=== PATIENT | female | born 1965 | race Caucasian/White ===

== ENCOUNTER → 2017-07-06 | Day surgery (SDC) | payer OTHER ==
[~2017-07-06] VITALS: Ht 160 cm; Wt 78.5 kg
[~2017-07-06] MED LIST: B12/1TAB3 PO; CYAN1TAB68 PO; IBUP200C71 PO; IBUP800T37 PO; LIDOCAINE MPF 1% 5 ML VIAL ONE; LIDOCAINE/SOD BICARB 8.4% SYR ID ONE; NORMOSOL R SOLN(*) 1000 ML BAG 1,000 ML IV PRN; OXYC-865 PO; PROPOFOL EMUL(*) 10MG/ML 20 ML 40 ML ONE
[2017-07-06 07:20] VITALS: BP 129/70
--- NOTE | 2017-07-06 07:23 | Post Operative Progress Note ---
Post Operative Progress Note Date: July 06, 2017 Time: 08:52 Surgeon: ashley Anesthesia: dr william Pre-Op Diagnosis: screening colonoscopy Post-Op Diagnosis: sigmoid divertiulcosis and 2 mm polyp at 15 cm and transverse colon Procedure(s): colonoscopy and polypectomy FRANKLIN LIANG MD July 06, 2017 07:23
--- NOTE | 2017-07-06 07:24 | Short(Outpt) Discharge Summary ---
Discharge Summary Reason for Hosp/Final Diag: (1) Encounter for screening colonoscopy Hospital Course & Plan: sigmoid diverticulosis and 2 mm polyps at 15 cm and transverse colon Departure Discharge to: Home Discharge Instructions Home Meds Reported Medications B12/Levomefolate Calcium/B-6 (FOLBIC RF TABLET) 1 Each Tablet, 1 EACH PO 05/25/17 Diet: High Fiber Activity: As Tolerated FRANKLIN LIANG MD July 06, 2017 07:24
[2017-07-06 08:53] VITALS: BP 128/73
[2017-07-06 09:00] VITALS: BP 109/81
[2017-07-06 09:15] VITALS: BP 131/63
[2017-07-06 09:16] VITALS: BP 120/75
--- NOTE | 2017-07-06 14:38 | OPERATIVE REPORT 1 ---
EVENT DATE: July 06, 2017 SURGEON: Bruce Syed MD ANESTHESIOLOGIST: Haider Vyas MD ANESTHESIA: Sedation. PREOPERATIVE DIAGNOSIS Screening colonoscopy. POSTOPERATIVE DIAGNOSES 1. Sigmoid diverticulosis. 2. A 2 mm polyp in the transverse colon. 3. A 2 mm polyp at 15 cm. PROCEDURE PERFORMED Colonoscopy with polypectomy. DESCRIPTION OF PROCEDURE Patient was placed in the left lateral decubitus position and given intravenous sedation. Rectal exam was unremarkable. Flexible colonoscope was inserted and advanced to the cecum. She had an excellent bowel prep. The ileocecal valve and base of the cecum were identified. Scope was slowly withdrawn. Care was taken to look behind the haustral folds. No abnormalities were noted in the cecum or right colon. In the transverse colon, she had a small 2 mm projection. This was removed with a cold cup. The rest of the transverse and descending colon were normal. She had multiple diverticula in the sigmoid colon. No evidence of diverticulitis. At 15 cm, she had a small, 2 mm projection. This was removed with the cold cup. The scope was retroflexed. That appeared to be normal. Patient tolerated the procedure well. No apparent complications. [facility]
== END ==
LOC: OR 00:52
PROVIDERS: ATTEND Surgery
DX: Z12.11 Encounter for screening for malignant neoplasm of colon (principal); K63.5 Polyp of colon; K57.30 Diverticulosis of large intestine without perforation or abscess without bleeding
CPT/HCPCS: 00811; 45380; 88305; J2001; J2704

== ENCOUNTER 2017-08-07 15:18 | Outpatient (RCR) | payer OTHER ==
[2017-05-25 10:03] VITALS: BP 141/82
[2017-05-25 11:06] LABS: PLATELET COUNT, AUTOMATED 188 K/uL (150-450)
--- NOTE | 2017-05-26 04:26 | ONCOLOGY FOLLOW UP NOTE ---
EVENT DATE: May 25, 2017 REFERRING PROVIDER Matthew Ruelas MD REASON FOR CONSULTATION Iron deficiency anemia. CHIEF COMPLAINT Fatigue, restless legs, sleep disturbance, ice chewing, mood disturbance. HISTORY OF PRESENT ILLNESS Ms. Whitley presents to my clinic today at the request of Dr. Ruelas for evaluation of iron deficiency. She reports that she underwent gastric bypass surgery about ten years ago. Since that time, she has been doing pretty well in general. She does receive vitamin B12 injections, and she has tried to take oral iron supplementation in the past, but it makes her feel quite ill. She reports no melena or hematochezia. She has had no abnormal vaginal bleeding. She denies hematuria. She has had no severe epistaxis. She does report ongoing fatigue, which has been the case for quite some time. She feels occasionally slightly lightheaded, but she has not felt that she will lose consciousness. She reports issues with restless legs, and her sleep has been disturbed by this. She does report that she tends to be "edgy" at times, and this has been the case for quite a while. She tends to feel fairly cold in a warm room, and she will need to wear a sweatshirt when she works out at the gym, for example. She feels compelled to chew ice. REVIEW OF SYSTEMS Otherwise negative, and all systems were reviewed. PAST MEDICAL HISTORY 1. Status post gastric bypass surgery about ten years ago. 2. History of iron deficiency. PAST SURGICAL HISTORY Patient is reportedly status post cholecystectomy. CURRENT MEDICATIONS None. ALLERGIES No known drug allergies. SOCIAL HISTORY The patient smokes about a half a pack of cigarettes per day. She drinks one to two alcoholic beverages per day on average. There is no history of illicit drug use. FAMILY HISTORY There is a family history of "liver cancer" in her mother diagnosed when she was age 66. VITAL SIGNS Temperature is 98.6, blood pressure 141/82, heart rate is 82, respirations 16, oxygen saturation is 98% on room air. Weight is 81.5 kg. PHYSICAL EXAMINATION GENERAL: Patient is alert and oriented times three in no apparent distress, sitting in the exam room chair. She is interactive and quite pleasant. HEENT: Exam reveals anicteric sclerae. NEUROLOGIC: Exam is grossly nonfocal, and her gait is normal. EXTREMITIES: Exam reveals no edema, clubbing or cyanosis. There is no erythema or tenderness to palpation of the extremities. LABORATORY STUDIES Laboratory studies are reviewed from a wellness check performed on May 16, 2017. Her basic chemistries are unremarkable. Total iron binding capacity 512% . Transferrin saturation is 4. There is no ferritin for review. Hemoglobin is 10.5, hematocrit 36.9, MCV is 69. IMAGING None today. ASSESSMENT AND PLAN Iron deficiency anemia due to lack of nutritional intake. I had a good visit with Ms. Whitley today. We spent time discussing her current symptoms, laboratory studies, and her history of remote gastric bypass surgery performed about 10 years ago. She does not have symptoms to suggest chronic or acute blood loss. I do think we can attribute her laboratory findings to lack of nutritional intake/lack of absorption of iron due to her past gastric bypass surgery. She does not have a severe anemia, but her iron studies are certainly indicative of iron deficiency. She cannot tolerate oral iron. I have recommended that she have repeat labs to be done today, to include a ferritin. We will reevaluate these labs, and based on the results, we will decide how many doses of weekly Venofer she will receive. I would anticipate between two and four. I will review her labs, and we will get orders written for the infusions to begin at [facility] as soon as possible. She will have repeat labs several weeks after her completion of intravenous iron, and I will plan to see her again at that time to reevaluate her symptoms and her numbers. Thank you very much, Dr. Ruelas, for allowing me to take part in the care of this very pleasant patient. Please do not hesitate to call with any questions or concerns. I spent a total of 35 minutes of face to face time with the patient today, 30 minutes of this was spent in direct counseling and coordination of care. SILVIANO
[2017-06-05 14:15] VITALS: BP 135/85
[2017-06-05] MEDS: NS(*) 0.9% 100 ML BAG 100 ML IVPB PRN (15:51)
[2017-06-12 15:16] VITALS: BP 121/70
[2017-06-12] MEDS: NS(*) 0.9% 100 ML BAG 100 ML IVPB PRN (15:37)
[2017-06-19] MEDS: IRON SUCROSE 100 MG/5 ML VIAL IVP PRN (15:21)
[2017-06-19] MEDS: NS(*) 0.9% 100 ML BAG 100 ML IVPB PRN (15:22)
[2017-06-19 15:24] VITALS: BP 119/82
[2017-06-26] MEDS: IRON SUCROSE 100 MG/5 ML VIAL IVP PRN (15:38)
[2017-06-26] MEDS: NS(*) 0.9% 100 ML BAG 100 ML IVPB PRN ×2 (15:38→15:39)
[2017-06-26 16:58] VITALS: BP 114/64
[2017-06-27 15:18] VITALS: BP 123/81
[2017-07-20 06:57] LABS: PLATELET COUNT, AUTOMATED 151 K/uL (150-450)
[2017-07-20 06:59] VITALS: BP 130/66
[2017-07-25 11:02] VITALS: BP 121/68
--- NOTE | 2017-07-26 04:31 | ONCOLOGY FOLLOW UP NOTE ---
EVENT DATE: July 25, 2017 REASON FOR FOLLOWUP Iron deficiency anemia. CHIEF COMPLAINT Patient feels well today. HISTORY OF PRESENT ILLNESS Ms. Whitley returns to clinic for a followup visit today. Since her last visit , she has completed four weekly infusions of Venofer. She tolerated each infusion without any difficulty. Over time, she has started to feel much, much better. She has more energy, her workouts are longer and more strenuous, she is sleeping better, restless legs have improved, and her mood has also improved. She is very happy about this change. She has had followup labs drawn , and she is here to review the results. She reports no blood loss. REVIEW OF SYSTEMS Otherwise negative, and all systems were reviewed. PAST MEDICAL HISTORY 1. Status post gastric bypass surgery about ten years ago. 2. History of iron deficiency. PAST SURGICAL HISTORY Patient is reportedly status post cholecystectomy. CURRENT MEDICATIONS None. ALLERGIES No known drug allergies. SOCIAL HISTORY The patient smokes about a half a pack of cigarettes per day. She drinks one to two alcoholic beverages per day on average. There is no history of illicit drug use. FAMILY HISTORY There is a family history of "liver cancer" in her mother diagnosed when she was age 66. VITAL SIGNS Temperature is 98.9, blood pressure 121/68, heart rate is 80, respirations 16, oxygen saturation is 92%. Weight is 82.4 kg. PHYSICAL EXAMINATION GENERAL: Patient is alert and oriented x three in no apparent distress, sitting in the exam room chair. She is in good spirits, and she appears healthy. HEENT: Exam reveals anicteric sclerae. NEUROLOGIC: Exam is grossly nonfocal, and her gait is normal. EXTREMITIES: Exam reveals no edema, clubbing or cyanosis. SKIN: Exam reveals no concerning rash or lesion. LABORATORY STUDIES Reviewed per the [facility] record. ASSESSMENT AND PLAN Iron deficiency anemia due to lack of nutritional intake. I had a good visit with Ms. Whitley today. We spent time reviewing her symptoms, which are much less than they had been before. She has had general improvement in her overall wellbeing, and she is quite happy about the way that she has been feeling. We spent time reviewing her laboratory studies. She has had significant improvement in her hemoglobin, but she does not appear yet to be quite iron replete. I have recommended that she have two additional weekly infusions of Venofer. She agrees to do so. Hopefully this will extend the period of time between need for additional Venofer infusions. We discussed that this is very likely going to be the case, given her history of gastric bypass surgery. I will plan to see her back after repeat labs in January, or sooner if there are questions or concerns. SILVIANO
[2017-07-31] MEDS: IRON SUCROSE 100 MG/5 ML VIAL IVP PRN (15:24)
[2017-07-31] MEDS: NS(*) 0.9% 100 ML BAG 100 ML IVPB PRN (15:24)
[2017-07-31 15:50] VITALS: BP 129/65
[~2017-08-07] VITALS: Ht 163.2 cm; Wt 82.4 kg
[~2017-08-07 15:18] MED LIST changes: +DEXTROSE 5%(*) 100 ML BAG 100 ML IVPB PRN; +IBUP-136 PO; -IBUP200C71 PO; +IRON SUCROSE 100 MG/5 ML VIAL IVP ONE; -LIDOCAINE MPF 1% 5 ML VIAL ONE; -LIDOCAINE/SOD BICARB 8.4% SYR ID ONE; +LIDOCAINE/SOD BICARB 8.4% SYR ID PRN; -NORMOSOL R SOLN(*) 1000 ML BAG 1,000 ML IV PRN; -PROPOFOL EMUL(*) 10MG/ML 20 ML 40 ML ONE
[2017-08-07 15:27] VITALS: BP 119/83
[2017-08-07] MEDS: IRON SUCROSE 100 MG/5 ML VIAL IVP PRN (15:50)
[2017-08-07] MEDS: NS(*) 0.9% 100 ML BAG 100 ML IVPB PRN ×2 (15:50→15:51)
== END 2017-08-22 ==
LOC: SPU 15:18
PROVIDERS: ATTEND Internal Medicine Medical Oncology
DX: D50.8 Other iron deficiency anemias (principal); Z98.84 Bariatric surgery status; R53.83 Other fatigue; G25.81 Restless legs syndrome; F17.210 Nicotine dependence, cigarettes, uncomplicated; N93.9 Abnormal uterine and vaginal bleeding, unspecified
CPT/HCPCS: 36415; 82728; 83540; 83550; 85025; 96365; 99202; 99212; J1756; J7050; 82040; 82247; 82310; 82374; 82435; 82565; 82947; 84075; 84132; 84155; 84295; 84450; 84460; 84520

== ENCOUNTER → 2018-01-04 | Outpatient (CLI) | payer OTHER ==
[~2018-01-04] MED LIST changes: -DEXTROSE 5%(*) 100 ML BAG 100 ML IVPB PRN; -IRON SUCROSE 100 MG/5 ML VIAL IVP ONE; -LIDOCAINE/SOD BICARB 8.4% SYR ID PRN
--- NOTE | 2018-01-05 08:47 | RADIOLOGY IMAGING REPORT ---
FACILITY: [facility] [place] PATIENT NAME: BETTY REBOLLEDO : [id number] MR: [id number] V: [id number] EXAM DATE: ORDERING PHYSICIAN: JAJA DURAND TECHNOLOGIST: Tangela Galindo PROCEDURE:BILATERAL DIGITAL SCREENING MAMMOGRAM WITH CAD ASSISTED INTERPRETATION & 3D TOMOSYNTHESIS COMPARISON:Prior mammograms 11/08/16, 11/04/15, 01/23/12, 01/20/12. INDICATIONS:SCREENING FINDINGS: Mildly heterogeneous fibroglandular tissue is seen throughout the breasts. The parenchymal pattern has remained stable allowing for difference in mammographic technique & patient positioning. There is no evidence of malignant appearing mass, malignant appearing calcifications or other secondary sign of malignancy in either breast. DIAGNOSTIC CATEGORY 1--NEGATIVE. RECOMMENDATIONS: ROUTINE MAMMOGRAM AND CLINICAL EVALUATION. IMPRESSION: BIRADS 1: Negative. No significant abnormality is seen. Dictated by: Danae Hudson M.D. on 01/04/2018 at 17:48 Transcribed by: CRISTY on 01/05/2018 at 8:09 Approved by: Danae Hudson M.D. on 01/05/2018 at 8:45 [facility]
== END ==
LOC: MAMO 00:40
PROVIDERS: ATTEND Obstetrics & Gynecology
DX: Z12.31 Encounter for screening mammogram for malignant neoplasm of breast (principal)
CPT/HCPCS: 77063; 77067

== ENCOUNTER 2018-01-17 15:53 | Outpatient (RCR) | payer OTHER ==
[2018-01-15 15:25] VITALS: BP 131/86
[2018-01-15 15:48] LABS: PLATELET COUNT, AUTOMATED 199 K/uL (150-450)
[2018-01-17 15:55] VITALS: BP 126/83
--- NOTE | 2018-01-18 02:18 | ONCOLOGY FOLLOW UP NOTE ---
EVENT DATE: January 17, 2018 REASON FOR FOLLOWUP Iron-deficiency anemia, status post remote gastric bypass surgery. CHIEF COMPLAINT Patient feels great today. HISTORY OF PRESENT ILLNESS Ms. Whitley returns to the clinic for a followup visit today. In general, her quality of life has improved dramatically. She reports no significant fatigue. Sleep quality has improved. She has no restless sensations in her legs. Her mood has been better. She is very happy about how things are going. She did have followup labs drawn, and she is here to review the results. REVIEW OF SYSTEMS Otherwise negative on all systems reviewed. PAST MEDICAL HISTORY 1. Status post gastric bypass surgery about ten years ago. 2. History of iron deficiency. PAST SURGICAL HISTORY Patient is reportedly status post cholecystectomy. CURRENT MEDICATIONS Folbic RF tablet once daily. ALLERGIES No known drug allergies. SOCIAL HISTORY The patient smokes about a half a pack of cigarettes per day. She drinks one to two alcoholic beverages per day on average. There is no history of illicit drug use. FAMILY HISTORY There is a family history of "liver cancer" in her mother diagnosed when she was age 66. PHYSICAL EXAMINATION VITAL SIGNS: Temperature is 98.5, blood pressure 126/83, heart rate 68, respirations 16, oxygen saturation 96% on room air. Weight is 82.4 kg. GENERAL: Patient is alert and oriented x3, in no apparent distress, sitting in the exam room chair. She appears healthy. She is interactive and pleasant. HEENT: Anicteric sclerae. NEUROLOGIC: Grossly nonfocal. Her gait is normal. EXTREMITIES: No edema, clubbing, or cyanosis. SKIN: Exam reveals no concerning rash or lesion. Pallor has greatly improved. LABORATORY STUDIES Reviewed per the [facility] record. ASSESSMENT AND PLAN Iron-deficiency anemia due to lack of nutritional intake. Ms. Whitley is doing remarkably well. She has no symptoms to suggest blood loss, and we are attributing her issues with iron deficiency to lack of absorption due to her remote gastric bypass surgery. She has received Venofer supplementation intravenously, and she has tolerated this quite well. Her quality of life has dramatically improved. We spent time today reviewing her labs. She has a normal CBC with a robust hematocrit. Interestingly, she does have a ferritin of 10. As she has no signs or symptoms of iron deficiency, I have recommended that for the time being we keep an eye on her counts and iron studies. I have recommended that she go to the lab quarterly in the coming year to have repeat CBC, CMP, ferritin, and iron panel drawn. We certainly can have her come in for additional Venofer infusions in that timeframe should there be concern for waning iron stores and/or worsening anemia. SILVIANO
== END 2018-03-27 08:50 | disposition home or self-care (01) ==
LOC: ONC 15:53
PROVIDERS: ATTEND Internal Medicine Medical Oncology
DX: D50.8 Other iron deficiency anemias (principal); Z98.84 Bariatric surgery status; R53.83 Other fatigue
CPT/HCPCS: 36415; 82040; 82247; 82310; 82374; 82435; 82565; 82728; 82947; 83540; 83550; 84075; 84132; 84155; 84295; 84450; 84460; 84520; 85025; 99212